=== PATIENT | male | born 1990 | race Caucasian/White ===

== ENCOUNTER 2016-10-03 20:16 | Inpatient (IN) | payer BC ==
[~2016-10-03] VITALS: Ht 182.9 cm; Wt 98.9 kg
[~2016-10-03 20:16] MED LIST: CHOLPOW PO; HYDR-4079 PO; OMEP40CA41 PO
[2016-10-03] MEDS ORDERED: ONDANSETRON INJ 2 MG/ML 2 ML VIAL IV STA (20:25)
[2016-10-03] MEDS ORDERED: PROMETHAZINE HCL INJ 6.25 MG in SODIUM CHLORIDE 0.9% 50ML 50 ML IV STA (20:25)
[2016-10-03] MEDS ORDERED: KETOROLAC TROMETHAMINE 30 MG/ML VIAL IV STA (20:25)
[2016-10-03 20:47] LABS: BASO % 0.2 %; BASO ABS # 0.03 K/uL (0-0.2); COMPLETE YES; EOS % 0.2 %; IG% 0.3 %; LYMPH % 10.5 %; MEAN CELL VOLUME 89.9 fL (80-100); MEAN CORPUSCULAR HEMOGLOBIN 33.1 pg (25-34); MEAN CORPUSCULAR HGB CONC 36.8 g/dl (32-36); MEAN PLATELET VOLUME 10.3 fL (7.4-10.4); MONO % 6.3 %; NEUT % 82.5 %; PLATELET COUNT 227 K/uL (130-400); RED BLOOD COUNT 5.23 M/uL (4.7-6.1); WHITE BLOOD COUNT 19.12 K/uL (4.8-10.8)
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
[2016-10-03 21:03] LABS: CREATININE 0.96 mg/dl (0.60-1.40); POTASSIUM 4.1 mmol/L (3.5-5.1)
[2016-10-03 21:06] LABS: ALB/GLOB RATIO 1.4 (0.9-2)
--- NOTE | 2016-10-03 21:22 | DIAGNOSTIC IMAGING REPORT ---
PA CHEST WITH ABDOMINAL SERIES CLINICAL HISTORY: Generalized abdominal pain. FINDINGS: A PA chest radiograph is compared to study dated 05/31/2016 and correlated with chest CT dated 06/01/2016. The cardiomediastinal silhouette is unremarkable. The lungs and pleural spaces are clear. No pneumothorax is seen. The bony thorax is grossly intact. Supine and erect abdominal radiographs are correlated with abdominal CT dated 06/01/2016. Cholecystectomy clips are seen in the right upper quadrant. There is a nonobstructed abdominal bowel gas pattern. No evidence of intraperitoneal free air is seen. There are no abnormal abdominal calcifications. The lumbosacral spine and bony pelvis appear intact. IMPRESSION: 1. No active disease in the chest. 2. Unremarkable abdominal radiographs. Electronically signed by: Samuel Chatterjee M.D. 10/03/2016 9:21 PM Dictated Date/Time: 10/03/2016 9:19 PM
[2016-10-03] MEDS ORDERED: MoRPHine SULFATE 10 MG/ML CARP/VIAL IV STA (21:28)
[2016-10-03] MEDS ORDERED: ACETAMINOPHEN 325 MG TAB PO PRN (22:45)
[2016-10-03] MEDS ORDERED: POLYETHYLENE (MIRALAX) 17 GM PACK PO PRN (22:45)
[2016-10-03] MEDS ORDERED: ALUMINUM/MAGNESIUM/SIMETH (MAALOX MAX) 30 ML UDC PO PRN (22:45)
[2016-10-03] MEDS ORDERED: ONDANSETRON INJ 2 MG/ML 2 ML VIAL IV PRN (22:45)
[2016-10-03] MEDS ORDERED: MAGNESIUM HYDROXIDE SUSP 30 ML UDC PO PRN (22:45)
[2016-10-03] MEDS ORDERED: ZOLPIDEM TARTRATE 5 MG TAB PO PRN (22:45)
[2016-10-03] MEDS: HYDROmorphone INJ 1 MG/ML SYR IV PRN (23:41)
[2016-10-03] MEDS: D5W AND NSS 1,000 ML IV SCH (23:42)
[2016-10-04] VITALS (7 sets, daily range): BP systolic 125–163; BP diastolic 79–105; PULSE 59–75; TEMP 36.3–36.9; O2SAT 95–99; Ht 182.9 cm; Wt 98.9 kg
[2016-10-04] MEDS: HYDROmorphone INJ 1 MG/ML SYR IV PRN ×5 (03:42→21:30)
[2016-10-04] MEDS: D5W AND NSS 1,000 ML IV SCH ×2 (06:09→12:28)
[2016-10-04 07:52] LABS: PROTHROMBIN TIME (PATIENT) 10.7 SECONDS (9.0-12.0)
[2016-10-04 08:20] LABS: BUN/CREATININE RATIO 14.7 (10-20); CALCIUM 8.4 mg/dl (8.5-10.1); CREATININE 0.93 mg/dl (0.60-1.40); POTASSIUM 3.9 mmol/L (3.5-5.1)
--- NOTE | 2016-10-04 08:23 | Family Medicine Progress Note ---
Progress Note Date of Service Oct 04, 2016. Subjective Pt evaluation today including: conversation w/ patient Pain: 06/12 Voiding: no voiding problems Patient reports continued pain Has had these episodes in the past Denies alcohol, denies marijuana use Smokes a pack a week. Constitutional: No chills, No fever, No sweats, No weight loss ENT: No hearing loss Respiratory: No cough, No dyspnea on exertion, No shortness of breath, No sputum, No wheezing Cardiovascular: No chest pain Abdomen: + nausea, + pain, No constipation, No diarrhea, No vomiting Male : No dysuria, No urinary frequency Objective Physical Exam General Appearance: no apparent distress Eyes: PERRL, EOMI ENT: hearing grossly normal Neck: supple, no adenopathy Respiratory/Chest: lungs clear, normal breath sounds, no respiratory distress, no accessory muscle use Cardiovascular: regular rate, rhythm, no edema Abdomen: normal bowel sounds, non tender, soft Extremities: non-tender, normal inspection, no pedal edema Neurologic/Psychiatric: no motor/sensory deficits, alert, normal mood/affect Assessment and Plan 26 y/o M admitted for abdominal pain/ vomiting, found to have mild pancreatitis. Intermittently hypertensive. Pancreatitis: IV fluids Pain control- taper down Dilaudid Clear liquids Lipid profile r/o out hypertriglyceridemia Abdominal pain/ Chronic. Has had EGD, CT abd. -normal. - coudl repeat if pain persists. Denies family history of any GI disorders. Been evaluated by GI as well on previous admissions. Possibly IBS picture, though wonder about marijuana use and cyclic vomiting syndrome. tox screen positive for opiates (though the screen was done after he was started on Dilaudid) and marijuana If he does use narcotics - wonder about narcotic bowel disorder Start PPI Dispo: D/C tomorrow. History Resident Physician Supervision Note: I was present with Dr. Carter during the history and exam. I discussed the case with the resident and agree with the findings and plan as documented in the note. Any exceptions or clarifications are listed here Pt seen and examined at bedside. Sleeping comfortably on entrance. Epigastric pain is described as severe, persistent knot of the entire abdominal region which is not exacerbated by any apparent changes, though accompanied by nausea w / nonliquid oral intake. Reports that dilaudid helps for ~25 minutes and then the pain comes back. Reports no bruising, lightheadedness, chest pain, SOB, n/t/ w. Denies frequent alcohol use, substance use. 1 pack per week smoking habit. Does report some mild waterbrash at time of examination. General Appearance: WD/WN, no apparent distress Respiratory: chest non-tender, lungs clear, normal breath sounds, no respiratory distress Cardiovascular: normal peripheral pulses, regular rate, rhythm, no edema, no murmur Gastrointestinal: normal bowel sounds, non tender (without grimace or guarding , though patient complains of diffuse, significant pain), soft, no organomegaly Assessment/Plan 26 y/o male w/ h/o episodic pancreatitis in the past presents w/ acute pancreatitis Pancreatitis - trend WBC and lipase. Advance diet as tolerated. Pain control, wean as tolerated to convert to PO. Lipid panel. t/c imaging of abd if no improvement GERD - PPI h/o substance use - denies at present, will f/u utox
[2016-10-04] MEDS ORDERED: NURSING VERBAL MED ORDER ONE (09:00)
[2016-10-04] MEDS: HEPARIN SOD 5000 UNIT/0.5 ML CARP SQ SCH ×3 (13:26→23:22)
[2016-10-04] MEDS ORDERED: PANTOprazole INJ 40 MG in SYRINGE 0 ML IV ONE (16:30)
[2016-10-04 18:07] LABS: BENZODIAZEPINE, URINE NEG (NEG); COCAINE,URINE NEG (NEG); PHENCYCLIDINE, URINE NEG (NEG)
[2016-10-05] MEDS: HYDROmorphone INJ 1 MG/ML SYR IV PRN (01:35)
[2016-10-05 06:27] LABS: CALCIUM 8.9 mg/dl (8.5-10.1); CHOLESTEROL/HDL RATIO 4.9; CREATININE 0.95 mg/dl (0.60-1.40); POTASSIUM 3.9 mmol/L (3.5-5.1)
[2016-10-05 07:44] VITALS: BP 153/90; PULSE 55; TEMP 36.3; O2SAT 97
--- NOTE | 2016-10-05 07:55 | Discharge Instructions ---
Discharge Instructions Admission Reason for Admission: Pancreatitis Discharge Discharge Diagnosis / Problem: pancreatitis, abdominal pain Discharge Goals Goal(s): Decrease discomfort, Improve function, Learn about illness, Therapeutic intervention, Prevent Disease Progression Activity Recommendations Activity Limitations: resume your previous activity Lifting Limitations: none, gradually increase as tolerated Exercise/Sports Limitations: gradually increase as tolerated May Resume Sexual Activity: when tolerated Shower/Bathe: no limitations Driving or Machine Use: no limitations . Instructions / Follow-Up Instructions / Follow-Up Dear Patrice, [place] were admitted to the hospital for abdominal pain and found to have mild pancreatitis. You were treated with IV fluids and pain medicine. Your enzyme levels were normal after being treated with the fluids. We recommend follow up with a PCP in 3-5 days for a recheck of your condition and to recheck your blood pressure. We encourage you to stop smoking. We also encourage discontinuation of Marijuana. If you have further symptoms, please call your PCP or come to the ER Thank you for allowing us to participate in your care. Current Hospital Diet Patient's current hospital diet: Clear Liquid Diet Discharge Diet Recommended Diet: Regular Diet Fluid Restriction: None Pending Studies Studies pending at discharge: no Laboratory Results Lipid Panel Test 10/05/16 05:20 Range/Units Triglycerides Level 112 0-150 mg/dl Cholesterol Level 204 H 0-200 mg/dl HDL Cholesterol 42 mg/dl Cholesterol/HDL Ratio 4.9 LDL Cholesterol, Calculated 140 mg/dl Work Instructions Additional Instructions: Please excuse Patrice Chawla from work from 10/03-10/05 as he was seen at our facility. Medical Emergencies . Who to Call and When: Medical Emergencies: If at any time you feel your situation is an emergency, please call 911 immediately. . Non-Emergent Contact Non-Emergency issues call your: Primary Care Provider . . "Provider Documentation" section prepared by Rossy Booker. VTE Core Measure Inpt VTE Proph given/why not?: Unfractionated heparin SQ
[2016-10-05 09:49] LABS: BASO % 0.4 %; BASO ABS # 0.03 K/uL (0-0.2); EOS % 1.5 %; HEMATOCRIT 45.5 % (42-52); IG% 0.1 %; LYMPH ABS # 2.68 K/uL (1.2-3.4); MEAN CORPUSCULAR HEMOGLOBIN 32.6 pg (25-34); MEAN PLATELET VOLUME 10.6 fL (7.4-10.4); MONO % 8.5 %; NEUT % 55.5 %; PLATELET COUNT 192 K/uL (130-400); WHITE BLOOD COUNT 7.89 K/uL (4.8-10.8)
[2016-10-05 09:52] LABS: COMPLETE YES; MEAN CORPUSCULAR HGB CONC 35.8 g/dl (32-36)
[2016-10-05] MEDS ORDERED: PANT40TA PO (09:59)
[2016-10-05 10:10] VITALS: BP 153/90; PULSE 55; TEMP 36.3; O2SAT 97
[2016-10-05] MEDS ORDERED: PANTOprazole INJ 40 MG in SYRINGE 0 ML IV SCH (11:00)
[2016-10-05] MEDS ORDERED: HYDROmorphone INJ 1 MG/ML SYR IV PRN (11:15)
--- NOTE | 2016-10-05 17:15 | Discharge Summary ---
Discharge Summary Admission Date: Oct 03, 2016 at 22:40 Discharge Date: Oct 05, 2016 Discharge Disposition: Home Principal Diagnosis: Pancreatitis, Chronic abdominal pain Problems/Secondary Diagnoses: (1) Asthma Status: Chronic Procedures: PA CHEST WITH ABDOMINAL SERIES CLINICAL HISTORY: Generalized abdominal pain. FINDINGS: A PA chest radiograph is compared to study dated 05/31/2016 and correlated with chest CT dated 06/01/2016. The cardiomediastinal silhouette is unremarkable. The lungs and pleural spaces are clear. No pneumothorax is seen. The bony thorax is grossly intact. Supine and erect abdominal radiographs are correlated with abdominal CT dated 06/01/2016. Cholecystectomy clips are seen in the right upper quadrant. There is a nonobstructed abdominal bowel gas pattern. No evidence of intraperitoneal free air is seen. There are no abnormal abdominal calcifications. The lumbosacral spine and bony pelvis appear intact. IMPRESSION: 1. No active disease in the chest. 2. Unremarkable abdominal radiographs. (Rossy Carter MD) Medication Reconciliation New Medications: Pantoprazole (Protonix) 40 Mg Tab 40 MG PO DAILY, #30 TAB Discharge Exam This is a 26 yo M who presented with 10/10 abdominal pain and vomiting. He was found to have mild pancreatitis with a lipase of 800. He was treated with IV fluids, clear liquid diet and pain control. He has been admitted for similar presentation in the past and GI work up has been largely negative. Urine tox was positive for Marij[place]ana and (opiates, but tox done after having received dilaudid here). His Lipase improved to normal the next day. He was advised to stop smoking and using marijuana. He was otherwise stable for discharge. Follow up recommended with a PCP. Review of Systems: Constitutional: No chills, No fever, No weight loss Eyes: No worsening of vision ENT: No hearing loss Respiratory: No cough, No dyspnea at rest, No dyspnea on exertion, No shortness of breath, No sputum, No wheezing Cardiovascular: No chest pain Abdomen: No constipation, No diarrhea, No nausea, No pain, No vomiting Genitourinary - Male: No dysuria, No hematuria Physical Exam: General Appearance: no apparent distress Eyes: PERRL, EOMI ENT: hearing grossly normal, pharynx normal Neck: supple Respiratory/Chest: lungs clear, normal breath sounds, no respiratory distress, no accessory muscle use Cardiovascular: regular rate, rhythm, no edema Abdomen / GI: normal bowel sounds, non tender, soft Extremities: normal inspection, no calf tenderness, no pedal edema Neurologic/Psychiatric: alert, normal mood/affect (Rossy Carter MD) Hospital Course Total Time Spent: Less than 30 minutes This includes examination of the patient, discharge planning, medication reconciliation, and communication with other providers. (Rossy Carter MD) Total Time Spent: Less than 30 minutes (Julián Rodriguez MD) Discharge Instructions Please refer to the electronic Patient Visit Report (Discharge Instructions) for additional information. (Rossy Carter MD) Follow-Up Dr. Carter, 1 week. (Rossy Carter MD) History Resident Physician Supervision Note: I was present with Dr. Carter during the history and exam. I discussed the case with the resident and agree with the findings and plan as documented in the note. Any exceptions or clarifications are listed here. Pt seen and examined at bedside. No acute events overnight. Pain considerably improved and tolerating food without nausea. (Julián Rodriguez MD) General Appearance: WD/WN, no apparent distress Respiratory: chest non-tender, lungs clear, normal breath sounds, no respiratory distress Cardiovascular: normal peripheral pulses, regular rate, rhythm, no edema, no murmur Gastrointestinal: normal bowel sounds, soft, no organomegaly, tenderness ( diffusely without grimace/guarding) (Julián Rodriguez MD) Assessment/Plan 26 y/o male w/ h/o episodic pancreatitis in the past presents w/ acute pancreatitis Pancreatitis - WBC and lipase improved. Pain controlled without medication. Lipid panel as noted. GERD - continue PPI as outpatient h/o substance use - recalcitrant to discuss substance use, even in light of contribution to complaint. Encouraged discussion w/ outpatient provider. (Julián Rodriguez MD)
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
[2016-10-07 23:13] LABS: COD UR 75 NG/ML (CUTOFF=50); HYDROCOD UR NEGATIVE NG/ML (CUTOFF=50); HYDROMOR UR 234 NG/ML (CUTOFF=50); MORPHINE UR 145 NG/ML (CUTOFF=50); NORHYDROCODONE CONF UR NEGATIVE NG/ML (CUTOFF=50); OXYMORPH UR NEGATIVE NG/ML (CUTOFF=50)
== END 2016-10-05 10:28 | disposition home or self-care (01) | DRG 440 ==
LOC: ENRESERVDT → ENRESERVTM → C.EDB 20:17 → C.MED 22:40
PROVIDERS: ADMIT Internal Medicine; ATTEND Family Medicine
DX: K85.90 Acute pancreatitis without necrosis or infection, unspecified (principal); G89.29 Other chronic pain; R10.9 Unspecified abdominal pain; K21.9 Gastro-esophageal reflux disease without esophagitis; F12.10 Cannabis abuse, uncomplicated; F17.200 Nicotine dependence, unspecified, uncomplicated; Z90.49 Acquired absence of other specified parts of digestive tract; Z82.49 Family history of ischemic heart disease and other diseases of the circulatory system; Z84.1 Family history of disorders of kidney and ureter

== ENCOUNTER 2017-07-24 03:52 | Emergency (ER) | payer BC ==
[~2017-07-24] VITALS: Ht 182.9 cm; Wt 100.8 kg
[2017-07-24 03:55] VITALS: TEMP 36.8; Ht 182.9 cm; Wt 100.8 kg
[2017-07-24] MEDS ORDERED: SODIUM CHLORIDE 0.9% 500ML 500 ML IV STA (04:06)
[2017-07-24] MEDS ORDERED: ONDANSETRON INJ 2 MG/ML 2 ML VIAL IV STA (04:06)
[2017-07-24] MEDS ORDERED: SODIUM CHLORIDE 0.9% 1000ML 1,000 ML IV STA (04:06)
[2017-07-24] MEDS ORDERED: HYDROmorphone INJ 1 MG/ML SYR IV STA (04:06)
[2017-07-24 04:27] LABS: BASO % 0.2 %; BASO ABS # 0.03 K/uL (0-0.2); COMPLETE YES; EOS % 2.2 %; IG% 0.3 %; LYMPH % 11.3 %; LYMPH ABS # 1.66 K/uL (1.2-3.4); MEAN CELL VOLUME 89.7 fL (80-100); MEAN CORPUSCULAR HEMOGLOBIN 31.9 pg (25-34); MEAN CORPUSCULAR HGB CONC 35.5 g/dl (32-36); MEAN PLATELET VOLUME 10.1 fL (7.4-10.4); MONO % 8.3 %; NEUT % 77.7 %; PLATELET COUNT 205 K/uL (130-400); RED BLOOD COUNT 5.24 M/uL (4.7-6.1)
[2017-07-24 04:44] LABS: BUN/CREATININE RATIO 12.5 (10-20); CALCIUM 8.9 mg/dl (8.5-10.1); CREATININE 0.99 mg/dl (0.60-1.40); POTASSIUM 3.8 mmol/L (3.5-5.1)
[2017-07-24] MEDS ORDERED: HYDROmorphone INJ 1 MG/ML SYR IV PRN (05:00)
[2017-07-24] MEDS ORDERED: OPTIRAY 320 IV PRN (05:00)
[2017-07-24] MEDS ORDERED: ALUMINUM/MAGNESIUM SUSP 30 ML UDC PO STA (05:27)
[2017-07-24] MEDS ORDERED: LIDOCAINE HCL 2% VISC SOLN 20 ML UDC PO STA (05:27)
[2017-07-24] MEDS ORDERED: PANTOprazole SOD 40 MG TAB PO STA (05:27)
[2017-07-24] MEDS ORDERED: NORCO 5/325MG HOME PACK PO ONE (06:00)
[2017-07-24 06:02] VITALS: PULSE 82; O2SAT 98
[2017-07-24] MEDS ORDERED: RANI150T3 PO (06:09)
[2017-07-24] MEDS ORDERED: HYDR-5688 PO (06:09)
[2017-07-24] MEDS ORDERED: PANT40TA PO (06:09)
[2017-07-24] MEDS ORDERED: DOXY100C76 PO (06:10)
[2017-07-24 06:12] VITALS: BP 132/82
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
--- NOTE | 2017-07-24 07:06 | DIAGNOSTIC IMAGING REPORT ---
SINGLE VIEW CHEST CLINICAL HISTORY: Generalized abdominal pain. FINDINGS: An AP, portable, upright chest radiograph is compared to study dated 10/03/2016. The cardiomediastinal silhouette is unremarkable. The lungs and pleural spaces are clear. No pneumothorax is seen. The bony thorax is grossly intact. No evidence of intraperitoneal free air is seen below the diaphragm. IMPRESSION: No active disease in the chest. Electronically signed by: Samuel Chatterjee M.D. 07/24/2017 7:05 AM Dictated Date/Time: 07/24/2017 7:04 AM
--- NOTE | 2017-07-24 07:08 | DIAGNOSTIC IMAGING REPORT ---
ABDOMEN AND PELVIS CT WITH IV CONTRAST CT DOSE: 670.60 mGy.cm HISTORY: epigastric pain, sudden onset, h/o pancreatitis TECHNIQUE: Multiaxial CT images of the abdomen and pelvis were performed following the use of intravenous contrast. A dose lowering technique was utilized adhering to the principles of ALARA. COMPARISON STUDY: Abdomen and pelvis CT 06/01/2016. FINDINGS: The lung bases are clear. Healed fracture of the left anterior seventh rib cartilage which maintains posterior displacement. Cholecystectomy. The liver, spleen, adrenal glands, pancreas, and kidneys are unremarkable. No retroperitoneal lymphadenopathy. Bladder is decompressed. No bowel wall thickening or obstruction. Normal appendix. IMPRESSION: 1. No bowel wall thickening or obstruction. 2. Normal appendix. 3. Cholecystectomy. Electronically signed by: Larry Mujica M.D. 07/24/2017 7:07 AM Dictated Date/Time: 07/24/2017 7:03 AM
--- NOTE | 2017-07-24 07:16 | DIAGNOSTIC IMAGING REPORT ---
KUB HISTORY: Generalized abdominal pain. COMPARISON: Chest and abdominal series 10/03/2016. FINDINGS: The bowel gas pattern is unremarkable. There are no dilated loops of small bowel to suggest an obstruction. No renal calculi. No ureteral calculi. No pneumoperitoneum or pneumatosis. Cholecystectomy. IMPRESSION: No renal or ureteral stones. Electronically signed by: Larry Mujica M.D. 07/24/2017 7:15 AM Dictated Date/Time: 07/24/2017 7:14 AM
== END 2017-07-24 06:23 | disposition home or self-care (01) ==
LOC: C.EDB 03:53
DX: J18.9 Pneumonia, unspecified organism (principal); R10.33 Periumbilical pain; R79.89 Other specified abnormal findings of blood chemistry